=== PATIENT | male | born 1950 | race Caucasian/White ===

== ENCOUNTER → 2018-08-17 | Outpatient (CLI) | payer MEDICARE, BC | LOC: COL.RAD 13:52 → EDBD 14:00 | DX: M25.541 Pain in joints of right hand (principal) | CPT/HCPCS: J3301; Q9967 ==

== ENCOUNTER 2021-10-14 16:02 | Emergency (ER) | payer MEDICARE, BC ==
[~2021-10-14] VITALS: Ht 188 cm; Wt 97.7 kg
[2021-10-14 18:15] VITALS: BP 149/88; PULSE 64; TEMP 97.9
== END 2021-10-14 18:15 | disposition home or self-care (01) ==
LOC: COL.ER 16:02
DX: S50.01XA Contusion of right elbow, initial encounter (principal); M25.461 Effusion, right knee; E11.9 Type 2 diabetes mellitus without complications; W19.XXXA Unspecified fall, initial encounter; X50.1XXA Overexertion from prolonged static or awkward postures, initial encounter

== ENCOUNTER → 2023-01-06 | Outpatient (CLI) | payer MEDICARE | LOC: COL.LAB 09:06 | DX: Z01.812 Encounter for preprocedural laboratory examination (principal) ==

== ENCOUNTER → 2024-03-01 | Outpatient (CLI) | payer MEDICARE ==
[~2024-03-01] MED LIST: Gadoterate 20 ML VIAL IV ONE
== END ==
LOC: COL.RAD 08:39
DX: H90.3 Sensorineural hearing loss, bilateral (principal)
CPT/HCPCS: A9575